=== PATIENT | male | born 1945 | race Caucasian/White ===

== ENCOUNTER 2022-09-05 15:41 | Emergency (ER) | payer OTHER, MEDICARE ==
[2022-09-05] MEDS: Ondansetron 4 MG Tab.DIS PO ONE (16:37)
[2022-09-05] MEDS: Ondansetron 4 MG Tab.DIS ONE (17:11)
[2022-09-05] MEDS: Sodium Chloride 0.9% 50 ML SDV FLUSH ONE (18:07)
[2022-09-05] MEDS: Iopamidol 612 MG/ML 100 ML Bottle IV SCH (18:07)
[2022-09-05] MEDS: Sodium Chloride 0.9% 10 ML Syringe FLUSH ONE (18:08)
== END 2022-09-05 20:25 | disposition home or self-care (01) ==
LOC: LB.ED 15:41
DX: K83.1 Obstruction of bile duct (principal); K86.89 Other specified diseases of pancreas; Z87.891 Personal history of nicotine dependence; Z91.048 Other nonmedicinal substance allergy status
CPT/HCPCS: 36415; 71260; 74177; 80053; 81001; 83690; 85025; 93005; 99284; J3490; Q0162; Q9967

== ENCOUNTER 2022-09-06 09:11 | Emergency (ER) | payer OTHER, MEDICARE ==
[2022-09-06] MEDS ORDERED: Sodium Chloride 0.9% 1,000 ML IV SCH (13:15)
[2022-09-06] MEDS ORDERED: Cholestyramine/Sucrose Powder 378 GM Jar PO ONE (13:17)
[2022-09-06] MEDS ORDERED: predniSONE 10 MG Tab PO ONE (13:18)
[2022-09-06] MEDS ORDERED: Ondansetron 4 MG Tab.DIS PO ONE (13:51)
[2022-09-06] MEDS ORDERED: Ondansetron 4 MG Tab.DIS PO PRN (13:52)
[2022-09-06] MEDS ORDERED: Ondansetron 4 MG Tab.DIS ONE (14:02)
== END 2022-09-06 14:00 ==
LOC: LB.ED 09:11
DX: K83.1 Obstruction of bile duct (principal); K86.89 Other specified diseases of pancreas; E78.00 Pure hypercholesterolemia, unspecified; I10 Essential (primary) hypertension; Z91.048 Other nonmedicinal substance allergy status; Z79.899 Other long term (current) drug therapy
CPT/HCPCS: 99285; A0425; A0429; A9270-GY; J7030; J7512; Q0162

== ENCOUNTER 2022-12-29 18:13 | Emergency (ER) | payer OTHER, MEDICARE ==
[2022-12-29] MEDS: Lactated Ringers 1,000 ML IV SCH ×2 (18:25→19:45)
[2022-12-29 19:05] LABS: BASOPHILS ABSOLUTE AUTO 0.01 K/uL (0.02-0.10); BASOPHILS PERCENT AUTO 0.2 % (0.0-0.5); EOSINOPHILS ABSOLUTE AUTO 0.01 K/uL (0.04-0.40); EOSINOPHILS PERCENT AUTO 0.2 % (1.0-5.0); HEMATOCRIT 30.2 % (40.0-54.0); HEMOGLOBIN 10.2 g/dL (13.0-18.0); LYMPHOCYTES PERCENT AUTO 3.2 % (20.0-40.0); MEAN CORPUSCULAR HEMOGLOBIN 32.7 pg (27.0-32.0); MEAN CORPUSCULAR HGB CONC 33.8 g/dL (31.0-35.0); MEAN CORPUSCULAR VOLUME 97 fL (76-96); MONOCYTES ABSOLUTE AUTO 0.75 K/uL (0.20-0.80); MONOCYTES PERCENT AUTO 11.9 % (3.0-10.0); NEUTROPHILS ABSOLUTE AUTO 5.35 K/uL (2.00-7.50); NEUTROPHILS PERCENT AUTO 84.5 % (45.0-70.0); RED BLOOD CELL COUNT 3.12 M/uL (4.50-6.50); RED CELL DISTRIBUTION WIDTH 17.1 % (11.0-16.0); WHITE BLOOD CELL COUNT,WBC 6.3 K/uL (4.0-11.0)
[2022-12-29 19:19] LABS: ALBUMIN 3.1 g/dL (3.4-5.0); ANION GAP 17.6 mmol/L (5.0-15.0); BILIRUBIN TOTAL 1.4 mg/dL (0.0-1.0); BUN/CREATININE RATIO 14.3 (6-25); CALCIUM 8.8 mg/dL (8.5-10.1); CARBON DIOXIDE,CO2 22.7 mmol/L (21.0-32.0); CREATININE 0.91 mg/dL (0.70-1.30); EST CRCL DRUG DOSING (CG) 63.68 mL/min; POTASSIUM,K 3.3 mmol/L (3.5-5.1); PROTEIN TOTAL,TP 6.3 g/dL (6.4-8.2); TROPONIN I HIGH SENSITIVITY 14.2 pg/ml (<=60.4)
[2022-12-29 19:20] LABS: PLATELET COUNT,PLT 90 K/uL (150-400)
[2022-12-29] MEDS ORDERED: Potassium Chloride 20 MEQ Tab.ER PO ONE (19:47)
[2022-12-29 20:01] LABS: BASE EXCESS VENOUS -2.3 mm/L (-2-3); BICARBONATE,VENOUS 23.1 mmol/L (23.0-28.0); PCO2 VENOUS 40.3 mm/Hg (41-51); PH,VENOUS 7.37 (7.31-7.41)
[2022-12-29 20:19] LABS: APPEARANCE,URINE CLEAR (CLEAR); BILIRUBIN,URINE SMALL (NEGATIVE); COLOR,URINE YELLOW; GLUCOSE,URINE 100 mg/dL (NEGATIVE); KETONES,URINE NEGATIVE (NEGATIVE); LEUKOCYTE ESTERASE,URINE NEGATIVE (NEGATIVE); NITRITE,URINE NEGATIVE (NEGATIVE); OCCULT BLOOD,URINE NEGATIVE (NEGATIVE); PROTEIN,URINE 30 mg/dL (NEGATIVE)
[2022-12-29 20:23] LABS: RBC,URINE 0-5 /HPF; WBC,URINE NOT SEEN /HPF
[2022-12-29 20:30] LABS: CORONAVIRUS COVID-19 NAA NEGATIVE (NEGATIVE); INFLUENZA A NAA NEGATIVE (NEGATIVE); INFLUENZA B NAA NEGATIVE (NEGATIVE)
[2022-12-29] MEDS ORDERED: Norepinephrine 4 MG in Dextrose 5% in Water 246 ML IV SCH ×2 (21:00)
[2022-12-29] MEDS ORDERED: Ertapenem 1 GM in Sodium Chloride 0.9% 50 ML IV ONE (21:21)
[2022-12-29] MEDS ORDERED: Lactated Ringers 1,000 ML IV SCH (22:30)
== END 2022-12-30 00:45 ==
LOC: LB.ED 18:13
DX: A41.9 Sepsis, unspecified organism (principal); I10 Essential (primary) hypertension; E78.00 Pure hypercholesterolemia, unspecified; Z20.822 Contact with and (suspected) exposure to COVID-19; Z91.09 Other allergy status, other than to drugs and biological substances; Z88.1 Allergy status to other antibiotic agents; Z79.899 Other long term (current) drug therapy
CPT/HCPCS: 0240U; 36415; 71045; 74177; 80053; 81001; 82803; 83605; 83690; 84484; 85025; 87040; 93005; 96361; 96365; 96366; 96368; 99285; A0425; A0429; A9270; J1335; J3370; J3490; J7050; J7060; J7120

== ENCOUNTER 2024-09-03 12:42 | Emergency (ER) | payer MEDICARE, OTHER ==
[2024-09-03] MEDS: Sodium Chloride 0.9% 1,000 ML IV SCH (12:43)
[2024-09-03 13:19] LABS: HEMATOCRIT 29.1 % (40.0-54.0); MEAN CORPUSCULAR HEMOGLOBIN 29.4 pg (27.0-32.0); MEAN CORPUSCULAR HGB CONC 30.9 g/dL (31.0-35.0); MEAN CORPUSCULAR VOLUME 95 fL (76-96); MEAN PLATELET VOLUME 10.2 fL (6.0-10.0); PLATELET COUNT,PLT 327 K/uL (150-400); RED BLOOD CELL COUNT 3.06 M/uL (4.50-6.50); RED CELL DISTRIBUTION WIDTH 17.4 % (11.0-16.0)
[2024-09-03 13:35] LABS: WHITE BLOOD CELL COUNT,WBC 24.9 K/uL (4.0-11.0)
[2024-09-03 13:42] LABS: APPEARANCE,URINE SLIGHTLY CLOUDY (CLEAR); COLOR,URINE YELLOW
[2024-09-03 13:43] LABS: INR 1.2 (1.0-3.5); PTT,PARTIAL THROMBOPLSTIN TIME 27.2 SECONDS (24.4-33.2)
[2024-09-03 13:43] LABS: BILIRUBIN,URINE NEGATIVE (NEGATIVE); GLUCOSE,URINE NEGATIVE (NEGATIVE); KETONES,URINE NEGATIVE (NEGATIVE); LEUKOCYTE ESTERASE,URINE NEGATIVE (NEGATIVE); NITRITE,URINE NEGATIVE (NEGATIVE); OCCULT BLOOD,URINE NEGATIVE (NEGATIVE); PH,URINE 5.5 (5.0-8.0); PROTEIN,URINE 30 mg/dL (NEGATIVE); RBC,URINE 0-5 /HPF
[2024-09-03 13:44] LABS: SQUAMOUS EPITHELIAL CELLS,UR FEW /HPF
[2024-09-03 13:47] LABS: C-REACTIVE PROTEIN 89.8 mg/L (<5.0); MAGNESIUM 1.8 mg/dL (1.8-2.4); PROTHROMBIN TIME 12.1 sec (9.0-11.5); TROPONIN I HIGH SENSITIVITY 18.9 pg/ml (<=60.4)
[2024-09-03 13:51] LABS: A/G RATIO 0.6 (0.8-2.0); ALBUMIN 2.4 g/dL (3.4-5.0); ANION GAP 7.4 mmol/L (5.0-15.0); BILIRUBIN TOTAL 0.7 mg/dL (0.0-1.0); BUN/CREATININE RATIO 18.1 (6-25); CALCIUM 8.3 mg/dL (8.5-10.1); CARBON DIOXIDE,CO2 31.7 mmol/L (21.0-32.0); CREATININE 0.72 mg/dL (0.70-1.30); EST CRCL DRUG DOSING (CG) 74.55 mL/min; POTASSIUM,K 4.1 mmol/L (3.5-5.1); PROTEIN TOTAL,TP 6.5 g/dL (6.4-8.2); TSH ULTRASENSITIVE 0.524 uIU/mL (0.358-3.740)
[2024-09-03 14:15] LABS: PLATELET COUNT ESTIMATE ADEQUATE
[2024-09-03] MEDS: Iopamidol 612 MG/ML 100 ML Bottle IV SCH (14:28)
[2024-09-03] MEDS: Sodium Chloride 0.9% 50 ML SDV FLUSH ONE (14:28)
[2024-09-03] MEDS: Levofloxacin/Dextrose 5%-Water 750 MG in Levofloxacin/Dextrose 5%-Water 150 ML IV ONE (15:23)
[2024-09-03] MEDS: ceFAZolin 2 GM in Sodium Chloride 0.9% 100 ML IV ONE (16:08)
[2024-09-03] MEDS: Lactated Ringers 1,000 ML IV SCH (16:30)
[2024-09-03] MEDS: Norepinephrine Bit/0.9 % NaCl 4 MG in Premix Bag 1 BAG IV SCH (16:42)
[2024-09-03] MEDS ORDERED: Naloxone 2 MG/2 ML Syringe IVPUSH PRN (16:49)
[2024-09-03] MEDS: fentaNYL 100 MCG/2 ML SDV IVPUSH PRN (17:00)
[2024-09-03] MEDS: fentaNYL 100 MCG/2 ML SDV ONE (17:32)
[2024-09-04] MEDS: ceFAZolin 2 GM in Sodium Chloride 0.9% 100 ML IV ONE (07:54)
== END 2024-09-03 18:12 ==
LOC: LB.ED 12:42
DX: A41.9 Sepsis, unspecified organism (principal); R65.21 Severe sepsis with septic shock; I10 Essential (primary) hypertension; E78.00 Pure hypercholesterolemia, unspecified; Z88.0 Allergy status to penicillin; Z91.09 Other allergy status, other than to drugs and biological substances; Z79.899 Other long term (current) drug therapy
CPT/HCPCS: 36415; 71045; 71260; 74177; 80053; 81001; 82947; 83605; 83735; 83880; 84443; 84484; 85025; 85610; 85730; 86140; 87040; 93005; 93010; 96361; 96365; 96367; 96375; 96376; 99285; A0425; A0428; J0690; J1956; J3010; J3490; J7030; J7120; Q9967